=== PATIENT | female | born 1995 | race Two or more races ===

== ENCOUNTER 2016-12-13 23:16 | Inpatient (IN) | payer SELFPAY ==
[~2016-12-13] VITALS: Ht 152.4 cm; Wt 54.2 kg
[2016-12-13] MEDS ORDERED: IV NORMAL SALINE 1000ML BAG 1,000 ML IV ONE (23:30)
[2016-12-13 23:36] LABS: BASO # 0.1 x10^3/uL (0.0-0.2); BASO % 1 % (0-3); EOS % 9 % (0-3); HEMATOCRIT 37.5 % (36.0-47.0); HEMOGLOBIN 12.6 g/dL (12.0-15.5); LYMPH # 2.7 x10^3/uL (1.0-4.8); LYMPH % 18 % (24-48); MEAN CORPUSCULAR HEMOGLOBIN 28 pg (25-35); MEAN CORPUSCULAR HGB CONC 34 g/dL (31-37); MEAN CORPUSCULAR VOLUME 83 fL (79-100); MONO % 7 % (0-9); NEUT % 66 % (31-73); PLATELET COUNT 298 x10^3/uL (140-400); RED BLOOD COUNT 4.53 x10^6/uL (3.50-5.40); RED CELL DISTRIBUTION WIDTH 13.5 % (11.5-14.5); WHITE BLOOD COUNT 15.5 x10^3/uL (4.0-11.0)
[2016-12-13 23:48] LABS: CALCIUM 8.6 mg/dL (8.5-10.1); CREATININE 0.6 mg/dL (0.6-1.0); GFR 123.9; POTASSIUM 3.2 mmol/L (3.5-5.1)
[2016-12-13 23:51] LABS: ETHANOL < 10 mg/dL (0-10)
[2016-12-13 23:54] LABS: ALBUMIN 3.5 g/dL (3.4-5.0); ALBUMIN/GLOBULIN RATIO 1.1 (1.0-1.7); TOTAL BILIRUBIN 0.2 mg/dL (0.2-1.0); TOTAL PROTEIN 6.8 g/dL (6.4-8.2)
[2016-12-14 00:04] LABS: BARBITURATES NEG (NEG); BENZODIAZEPINES NEG (NEG); CANNABINOIDS NEG (NEG); COCAINE NEG (NEG); METHADONE NEG (NEG); OPIATES NEG (NEG); PHENCYCLIDINE NEG (NEG)
--- NOTE | 2016-12-14 00:12 | RAD ---
PROCEDURE CT scan of the head without contrast 12/13/2016 HISTORY Headache and altered mental status. TECHNIQUE Unenhanced contiguous, 5 millimeter axial sections were obtained through the head. One or more of the following individualized dose reduction techniques were utilized for this study: 1. Automated exposure control. 2. Adjustment of the mA and/or kV according to patient size. 3. Use of iterative reconstruction technique. FINDINGS The ventricles are within normal limits in size and configuration. A 9 millimeter irregular calcification is seen in the region of the left sylvian fissure. There is no surrounding edema or associated mass effect. No acute parenchymal abnormality is seen. No extra-axial fluid collection is noted. No skull fracture is seen. Moderate mucosal thickening is seen involving the left maxillary sinus. IMPRESSION No acute intracranial abnormality is seen. Electronically signed by: Toñito Shah MD (Dec 14, 2016 00:10:54)
[2016-12-14 00:15] LABS: ETHANOL, URINE NEG (NEG)
[2016-12-14] MEDS ORDERED: ACETAMINOPHEN 325 MG TABLET. PO PRN (00:45)
[2016-12-14] MEDS ORDERED: ONDANSETRON PF 4 MG/2 ML VIAL. IV PRN (00:45)
--- NOTE | 2016-12-14 00:45 | PHYS DOC ---
Past Medical History Past Medical History: No Pertinent History Past Surgical History: No Surgical History Alcohol Use: None Drug Use: None Adult General Chief Complaint Chief Complaint: ALTERED MENTAL STATUS HPI HPI 21-year-old female who presents after being found unresponsive by EMS with a GCS of 3. Patient would not respond to sternal rub. IV was placed and the patient was not reactive to the IV placement. 1 mg of Narcan was given without effect. Her blood sugar was within normal limits. While en route she became more responsive with a GCS of 12 upon arrival. Family states she was unresponsive for approximately 10 minutes. They deny any seizure-like activity. Currently the patient is still confused but able answer basic questions and in no acute distress. She denies any specific complaints at this time. Review of Systems Review of Systems Constitutional: Denies fever or chills [] Eyes: Denies change in visual acuity, redness, or eye pain [] HENT: Denies nasal congestion or sore throat [] Respiratory: Denies cough or shortness of breath [] Cardiovascular: No additional information not addressed in HPI [] GI: Denies abdominal pain, nausea, vomiting, bloody stools or diarrhea [] : Denies dysuria or hematuria [] Musculoskeletal: Denies back pain or joint pain [] Integument: Denies rash or skin lesions [] Neurologic: Denies headache, focal weakness or sensory changes [] Endocrine: Denies polyuria or polydipsia [] Current Medications Current Medications Current Medications Medications (Trade) Dose Ordered Sig/Lex Start Time Stop Time Status Last Admin Dose Admin Acetaminophen (Tylenol) 650 mg PRN Q4HRS PRN 12/14/16 00:45 12/15/16 00:44 Ketorolac Tromethamine (Toradol) 30 mg 1X ONCE 12/14/16 01:00 12/14/16 01:01 Ondansetron HCl (Zofran) 4 mg PRN Q8HRS PRN 12/14/16 00:45 12/15/16 00:44 Sodium Chloride (Iv Sodium Chloride 0.9% 1000ml Bag) 1,000 ml @ 1,000 mls/hr 1X ONCE 12/13/16 23:30 12/14/16 00:29 DC 12/14/16 00:20 1,000 MLS/HR Allergies Allergies Allergies Coded Allergies Type Severity Reaction Last Updated Verified Penicillins Allergy Unknown 12/13/16 Yes Physical Exam Physical Exam Constitutional: Well developed, well nourished, no acute distress, non-toxic appearance. [] HENT: Normocephalic, atraumatic, bilateral external ears normal, oropharynx moist, no oral exudates, nose normal. [] Eyes: PERRLA, EOMI, conjunctiva normal, no discharge. [] Neck: Normal range of motion, no tenderness, supple, no stridor. [] Cardiovascular:Heart rate regular rhythm, no murmur [] Lungs & Thorax: Bilateral breath sounds clear to auscultation [] Abdomen: Bowel sounds normal, soft, no tenderness, no masses, no pulsatile masses. [] Skin: Warm, dry, no erythema, no rash. [] Back: No tenderness, no CVA tenderness. [] Extremities: No tenderness, no cyanosis, no clubbing, ROM intact, no edema. [] Neurologic: Alert and oriented X 3, normal motor function, normal sensory function, no focal deficits noted. [] Psychologic: Affect normal, judgement normal, mood normal. [] Current Patient Data Vital Signs Vital Signs Date Time Temp Pulse Resp B/P Pulse Ox O2 Delivery O2 Flow Rate FiO2 12/14/16 00:16 64 16 104/68 100 Room Air 12/13/16 23:20 98.1 98.1 Lab Values Laboratory Tests Test 12/13/16 23:20 12/13/16 23:45 12/13/16 23:52 12/14/16 00:15 White Blood Count 15.5x10^3/uL (4.0-11.0) H Red Blood Count 4.53x10^6/uL (3.50-5.40) Hemoglobin 12.6g/dL (12.0-15.5) Hematocrit 37.5% (36.0-47.0) Mean Corpuscular Volume 83fL (79-100) Mean Corpuscular Hemoglobin 28pg (25-35) Mean Corpuscular Hemoglobin Concent 34g/dL (31-37) Red Cell Distribution Width 13.5% (11.5-14.5) Platelet Count 298x10^3/uL (140-400) Neutrophils (%) (Auto) 66% (31-73) Lymphocytes (%) (Auto) 18% (24-48) L Monocytes (%) (Auto) 7% (0-9) Eosinophils (%) (Auto) 9% (0-3) H Basophils (%) (Auto) 1% (0-3) Neutrophils # (Auto) 10.2x10^3uL (1.8-7.7) H Lymphocytes # (Auto) 2.7x10^3/uL (1.0-4.8) Monocytes # (Auto) 1.1x10^3/uL (0.0-1.1) Eosinophils # (Auto) 1.4x10^3/uL (0.0-0.7) H Basophils # (Auto) 0.1x10^3/uL (0.0-0.2) Segmented Neutrophils % 70% (35-66) H Lymphocytes % 14% (24-48) L Monocytes % 2% (0-10) Eosinophils % 12% (0-5) H Basophils % 2% (0-3) Platelet Estimate Adequate (ADEQUATE) Sodium Level 145mmol/L (136-145) Potassium Level 3.2mmol/L (3.5-5.1) L Chloride Level 109mmol/L (98-107) H Carbon Dioxide Level 23mmol/L (21-32) Anion Gap 13 (6-14) Blood Urea Nitrogen 15mg/dL (7-20) Creatinine 0.6mg/dL (0.6-1.0) Estimated GFR (Cockcroft-Gault) 123.9 BUN/Creatinine Ratio 25 (6-20) H Glucose Level 100mg/dL (70-99) H Calcium Level 8.6mg/dL (8.5-10.1) Total Bilirubin 0.2mg/dL (0.2-1.0) Aspartate Amino Transferase (AST) 15U/L (15-37) Alanine Aminotransferase (ALT) 22U/L (14-59) Alkaline Phosphatase 69U/L (46-116) Troponin I Quantitative < 0.017ng/mL (0.000-0.055) Total Protein 6.8g/dL (6.4-8.2) Albumin 3.5g/dL (3.4-5.0) Albumin/Globulin Ratio 1.1 (1.0-1.7) Salicylates Level < 2.8mg/dL (2.8-20.0) L Salicylate Last Dose Date Unknown Salicylate Last Dose Time Unknown Acetaminophen Level < 2mcg/ml (10-30) L Acetaminophen Last Dose Date Unknown Acetaminophen Last Dose Time Unknown Ethyl Alcohol Level < 10mg/dL (0-10) Urine Opiates Screen Neg (NEG) Urine Methadone Screen Neg (NEG) Urine Barbiturates Neg (NEG) Urine Phencyclidine Screen Neg (NEG) Urine Amphetamine/Methamphetamine Neg (NEG) Urine Benzodiazepines Screen Neg (NEG) Urine Cocaine Screen Neg (NEG) Urine Cannabinoids Screen Neg (NEG) Urine Ethyl Alcohol Neg (NEG) POC Urine HCG, Qualitative Hcg negative (Negative) Lactic Acid Level 0.9mmol/L (0.4-2.0) Laboratory Tests 12/13/16 23:20 Laboratory Tests 12/13/16 23:20 EKG EKG [] Radiology/Procedures Radiology/Procedures CT of the head without contrast demonstrates the following: The ventricles are within normal limits in size and configuration. A 9 millimeter irregular calcification is seen in the region of the left sylvian fissure. There is no surrounding edema or associated mass effect. No acute parenchymal abnormality is seen. No extra-axial fluid collection is noted. No skull fracture is seen. Moderate mucosal thickening is seen involving the left maxillary sinus. Course & Med Decision Making Course & Med Decision Making Pertinent Labs and Imaging studies reviewed. (See chart for details) This 21-year-old female who had an episode of unresponsiveness with improvement of her mental status while in the ER had a head CT that was negative for any acute abnormalities. Pt is afebrile. She does have a slightly elevated white count but no other specific findings on laboratory workup. Her vital signs have been normal. Lactate was negative. Toxicology screen was negative. I discussed the need for observation with the hospitalist, Dr. Ferguson, who agreed to accept the patient for further observation. She was admitted without incident. Dragon Disclaimer Dragon Disclaimer This electronic medical record was generated, in whole or in part, using a voice recognition dictation system. Departure Departure Impression: Primary Impression: Altered mental status Disposition: 09 ADMITTED INPATIENT Admitting Physician: Jimmie Ferguson Condition: STABLE Referrals: NO PCP (PCP) JERMEIAS TIPTON DO Dec 14, 2016 00:45
[2016-12-14 00:48] LABS: % BASOS 2 % (0-3); % EOS 12 % (0-5)
[2016-12-14 00:49] LABS: PLT ESTIMATE ADEQUATE (ADEQUATE)
[2016-12-14] MEDS ORDERED: KETOROLAC TROMETHAMINE 30 MG/ML SYRINGE. IV ONE (01:00)
[2016-12-14] MEDS ORDERED: RANI150T2 PO (02:19)
[2016-12-14] MEDS ORDERED: IBUP-1060 PO (02:19)
[2016-12-14 03:39] VITALS: BP 105/65
--- NOTE | 2016-12-14 06:13 | EKG ---
[facility] [address] [place] [address] Test Date: 2016-12-13 Test Time: 23:51:22 Pat Name: LLUVIA ZAMBRANO Department: Room: 578 1 Gender: F Deburrer Strip: : 1995 Requested By: JEREMIAS TIPTON Order Number: [id number] Reading MD: Leif Zarate Measurements Intervals Gilbert Rate: 71 P: 64 AR: 114 QRS: 62 QRSD: 80 T: 36 QT: 398 QTc: 437 Interpretive Statements SINUS RHYTHM NORMAL ECG RI6.01 Unconfirmed report No previous ECG available for comparison Electronically Signed On 12-19-2016 13:32:35 CLINICAL PSYCHIATRIST by Leif Zarate
[2016-12-14 07:00] VITALS: BP 95/55
[2016-12-14 11:00] VITALS: BP 97/54
--- NOTE | 2016-12-14 12:24 | PDOC1 ---
History and Physical Source Source: Chart review, Patient Family History Family History: Other (none) Social History Smoke: No ALCOHOL: none Drugs: Other (works in [email or web address]) Current Problem List Problem List Problems Medical Problems: (1) Altered mental status Status: Acute Current Medications Current Medications Current Medications Medications (Trade) Dose Ordered Sig/Lex Start Time Stop Time Status Last Admin Dose Admin Acetaminophen (Tylenol) 650 mg PRN Q4HRS PRN 12/14/16 00:45 12/15/16 00:44 12/14/16 08:49 650 MG Ketorolac Tromethamine (Toradol) 30 mg 1X ONCE 12/14/16 01:00 12/14/16 01:01 DC 12/14/16 01:00 30 MG Ondansetron HCl (Zofran) 4 mg PRN Q8HRS PRN 12/14/16 00:45 12/15/16 00:44 Sodium Chloride (Iv Sodium Chloride 0.9% 1000ml Bag) 1,000 ml @ 1,000 mls/hr 1X ONCE 12/13/16 23:30 12/14/16 00:29 DC 12/14/16 00:20 1,000 MLS/HR Allergies Allergies Allergies Coded Allergies Type Severity Reaction Last Updated Verified Penicillins Allergy Unknown 12/13/16 Yes ROS Review of System CONSTITUTIONAL: No fever or chills EYES: No recent changes SKIN: No rash or itching CARDIOVASCULAR: No chest pain, syncope, palpitations, or edema RESPIRATORY: No SOB or cough GASTROINTESTINAL: No nausea, vomiting or abdominal pain NEUROLOGICAL: headaches ENDOCRINE: No cold or heat intolerance GENITOURINARY: No urgency or frequency of urination MUSCULOSKELETAL: No back pain or joint pain LYMPHATICS: No enlarged lymph nodes PSYCHIATRIC: No anxiety or depression Physical Exam Physical Exam GEN.: No apparent distress. Alert and oriented. HEENT: Head is normocephalic, atraumatic NECK: Supple. no jvd LUNGS: Clear to auscultation. normal airflow HEART: RRR, S1, S2 present. Peripheral pulses intact ABDOMEN: Soft, nontender. Positive bowel sounds. EXTREMITIES: Without any cyanosis. NEUROLOGIC: Normal speech, normal tone PSYCHIATRIC: Normal affect, normal mood. SKIN: No ulcerations Vitals Vitals Vital Signs Date Time Temp Pulse Resp B/P Pulse Ox O2 Delivery O2 Flow Rate FiO2 12/14/16 11:00 96.6 74 18 97/54 97 Room Air 96.6 Labs Labs Laboratory Tests Test 12/13/16 23:20 12/13/16 23:45 12/13/16 23:52 12/14/16 00:15 White Blood Count 15.5x10^3/uL (4.0-11.0) Red Blood Count 4.53x10^6/uL (3.50-5.40) Hemoglobin 12.6g/dL (12.0-15.5) Hematocrit 37.5% (36.0-47.0) Mean Corpuscular Volume 83fL (79-100) Mean Corpuscular Hemoglobin 28pg (25-35) Mean Corpuscular Hemoglobin Concent 34g/dL (31-37) Red Cell Distribution Width 13.5% (11.5-14.5) Platelet Count 298x10^3/uL (140-400) Neutrophils (%) (Auto) 66% (31-73) Lymphocytes (%) (Auto) 18% (24-48) Monocytes (%) (Auto) 7% (0-9) Eosinophils (%) (Auto) 9% (0-3) Basophils (%) (Auto) 1% (0-3) Neutrophils # (Auto) 10.2x10^3uL (1.8-7.7) Lymphocytes # (Auto) 2.7x10^3/uL (1.0-4.8) Monocytes # (Auto) 1.1x10^3/uL (0.0-1.1) Eosinophils # (Auto) 1.4x10^3/uL (0.0-0.7) Basophils # (Auto) 0.1x10^3/uL (0.0-0.2) Segmented Neutrophils % 70% (35-66) Lymphocytes % 14% (24-48) Monocytes % 2% (0-10) Eosinophils % 12% (0-5) Basophils % 2% (0-3) Platelet Estimate Adequate (ADEQUATE) Sodium Level 145mmol/L (136-145) Potassium Level 3.2mmol/L (3.5-5.1) Chloride Level 109mmol/L (98-107) Carbon Dioxide Level 23mmol/L (21-32) Anion Gap 13 (6-14) Blood Urea Nitrogen 15mg/dL (7-20) Creatinine 0.6mg/dL (0.6-1.0) Estimated GFR (Cockcroft-Gault) 123.9 BUN/Creatinine Ratio 25 (6-20) Glucose Level 100mg/dL (70-99) Calcium Level 8.6mg/dL (8.5-10.1) Total Bilirubin 0.2mg/dL (0.2-1.0) Aspartate Amino Transf (AST/SGOT) 15U/L (15-37) Alanine Aminotransferase (ALT/SGPT) 22U/L (14-59) Alkaline Phosphatase 69U/L (46-116) Troponin I Quantitative < 0.017ng/mL (0.000-0.055) Total Protein 6.8g/dL (6.4-8.2) Albumin 3.5g/dL (3.4-5.0) Albumin/Globulin Ratio 1.1 (1.0-1.7) Salicylates Level < 2.8mg/dL (2.8-20.0) Salicylate Last Dose Date Unknown Salicylate Last Dose Time Unknown Acetaminophen Level < 2mcg/ml (10-30) Acetaminophen Last Dose Date Unknown Acetaminophen Last Dose Time Unknown Ethyl Alcohol Level < 10mg/dL (0-10) Urine Opiates Screen Neg (NEG) Urine Methadone Screen Neg (NEG) Urine Barbiturates Neg (NEG) Urine Phencyclidine Screen Neg (NEG) Urine Amphetamine/Methamphetamine Neg (NEG) Urine Benzodiazepines Screen Neg (NEG) Urine Cocaine Screen Neg (NEG) Urine Cannabinoids Screen Neg (NEG) Urine Ethyl Alcohol Neg (NEG) Bedside Urine HCG, Qualitative Hcg negative (Negative) Lactic Acid Level 0.9mmol/L (0.4-2.0) Laboratory Tests Test 12/13/16 23:20 12/13/16 23:45 12/13/16 23:52 12/14/16 00:15 White Blood Count 15.5x10^3/uL (4.0-11.0) Red Blood Count 4.53x10^6/uL (3.50-5.40) Hemoglobin 12.6g/dL (12.0-15.5) Hematocrit 37.5% (36.0-47.0) Mean Corpuscular Volume 83fL (79-100) Mean Corpuscular Hemoglobin 28pg (25-35) Mean Corpuscular Hemoglobin Concent 34g/dL (31-37) Red Cell Distribution Width 13.5% (11.5-14.5) Platelet Count 298x10^3/uL (140-400) Neutrophils (%) (Auto) 66% (31-73) Lymphocytes (%) (Auto) 18% (24-48) Monocytes (%) (Auto) 7% (0-9) Eosinophils (%) (Auto) 9% (0-3) Basophils (%) (Auto) 1% (0-3) Neutrophils # (Auto) 10.2x10^3uL (1.8-7.7) Lymphocytes # (Auto) 2.7x10^3/uL (1.0-4.8) Monocytes # (Auto) 1.1x10^3/uL (0.0-1.1) Eosinophils # (Auto) 1.4x10^3/uL (0.0-0.7) Basophils # (Auto) 0.1x10^3/uL (0.0-0.2) Segmented Neutrophils % 70% (35-66) Lymphocytes % 14% (24-48) Monocytes % 2% (0-10) Eosinophils % 12% (0-5) Basophils % 2% (0-3) Platelet Estimate Adequate (ADEQUATE) Sodium Level 145mmol/L (136-145) Potassium Level 3.2mmol/L (3.5-5.1) Chloride Level 109mmol/L (98-107) Carbon Dioxide Level 23mmol/L (21-32) Anion Gap 13 (6-14) Blood Urea Nitrogen 15mg/dL (7-20) Creatinine 0.6mg/dL (0.6-1.0) Estimated GFR (Cockcroft-Gault) 123.9 BUN/Creatinine Ratio 25 (6-20) Glucose Level 100mg/dL (70-99) Calcium Level 8.6mg/dL (8.5-10.1) Total Bilirubin 0.2mg/dL (0.2-1.0) Aspartate Amino Transf (AST/SGOT) 15U/L (15-37) Alanine Aminotransferase (ALT/SGPT) 22U/L (14-59) Alkaline Phosphatase 69U/L (46-116) Troponin I Quantitative < 0.017ng/mL (0.000-0.055) Total Protein 6.8g/dL (6.4-8.2) Albumin 3.5g/dL (3.4-5.0) Albumin/Globulin Ratio 1.1 (1.0-1.7) Salicylates Level < 2.8mg/dL (2.8-20.0) Salicylate Last Dose Date Unknown Salicylate Last Dose Time Unknown Acetaminophen Level < 2mcg/ml (10-30) Acetaminophen Last Dose Date Unknown Acetaminophen Last Dose Time Unknown Ethyl Alcohol Level < 10mg/dL (0-10) Urine Opiates Screen Neg (NEG) Urine Methadone Screen Neg (NEG) Urine Barbiturates Neg (NEG) Urine Phencyclidine Screen Neg (NEG) Urine Amphetamine/Methamphetamine Neg (NEG) Urine Benzodiazepines Screen Neg (NEG) Urine Cocaine Screen Neg (NEG) Urine Cannabinoids Screen Neg (NEG) Urine Ethyl Alcohol Neg (NEG) Bedside Urine HCG, Qualitative Hcg negative (Negative) Lactic Acid Level 0.9mmol/L (0.4-2.0) VTE Prophylaxis Ordered VTE Prophylaxis Devices: No VTE Pharmacological Prophylaxi: No CUAUHTEMOC MESSER MD Dec 14, 2016 12:24
[2016-12-14] MEDS ORDERED: POTASSIUM CHLORIDE 20 MEQ TABLET.ER. PO ONE (13:00)
[2016-12-14] MEDS ORDERED: IV NORMAL SALINE 500ML BAG 500 ML IV ONE (13:00)
[2016-12-14 15:00] VITALS: BP 109/47
--- NOTE | 2016-12-14 15:08 | PDOC2 ---
NEUROLOGY CONSULT Date of Admission Date of Admission DATE: 12/14/16 TIME: 14:55 Reason for Consult Reason for Consult: IMPRESSION: MS changes Unresponsiveness for about 10 minutes on 12/13/16. Hypokalemia. RECOMMENDATIONS/PLAN: EEG. HCT performed which was negative. Lab: see orders. Medical treatment. HISTORY OF THE PRESENT ILLNESS: 21-y-old Ukrainian origin female patient was found unresponsive at home. She was unresponsive to verbal and textile stimuli per EMS. No shaking, jerking or urbano movements observed. She gained consciousness after 10 minutes without obvious postictal state. She was brought to the ER of [facility] and no recurrence of episode. Patient stated she does not speak much Samoan. PAST MEDICAL HISTORY: Please see above. PAST SURGERY HISTORY: No major surgery recently. ALLERGY: Unknown MEDICATIONS: Refer to [facility] FAMILY HISTORY: Non contributory. SOCIAL HISTORY: Lives at home. Denies smoking, drinking, and illicit drug use. REVIEW OF SYSTEMS: Constitutional: No malnutrition, weight loss, cachexia. Head: No traumatic brain or head injury. Skin: No edema, or rash. Ear: No infection, tinnitus. Eyes: No vision loss or color blindness. Nose: No bleeding or purulent discharges. Hearing: No hearing decrease. Neck: No injury. Breast: No history of cancer, masses,or discharges. Cardiac: No LA, arrhythmia,HTN, HLD. Pulmonary: No pneumonia, COPD. GI: No GI ulcer, GI bleeding. Urinary/genital: No dysuria, hematuria, incontinence, urinary retention. Endocrinologic: No cousin face, craniofacial dysmorphism, polydactyly, goiter.. Skeletomuscular: No muscular atrophy, deformity. Neurological: see HP. Psychiatric: Denies drug use/abuse. Otherwise, not [id number] review of systems. PHYSICAL EXAMINATION: General appearance is in no acute distress. HEENT: Normocephalic and nontraumatic. Eyes, nose, ears, and throat are unremarkable. Neck is supple. No lymphadenopathy. No bruits are heard over the carotid artery. No crepitus. Cardiovascular: S1, S2, regular rate and rhythm. Pulmonary: Clear to auscultation bilaterally. Abdomen: Bowel sounds are positive. Abdomen is soft, nontender, and nondistended. Extremities: No rash, lesions, or edema. No restriction of range of motion NEUROLOGICAL EXAMINATION: Alert Oriented to time, place and person. PERRL. EOMI. CN: no focal findings. Muscle tone: within normal. Muscle strength: 5. No drift of UE and LE after 10 seconds. DTR: 2+ Plantar reflex: Flexor response bilaterally Gait: At baseline normal. Sensory exam: no abnormal findings. No cerebellar signs elicited. F-T-N test accurate. Current Medications Current Medications Current Medications Sodium Chloride (Iv Sodium Chloride 0.9% 1000ml Bag) 1,000 ml @ 1,000 mls/hr 1X ONCE IV Last administered on 12/14/16 00:20; Start 12/13/16 at 23:30; Stop 12/14/16 at 00:29; Status DC Ondansetron HCl (Zofran) 4 mg PRN Q8HRS PRN IV NAUSEA/VOMITING; Start 12/14/16 at 00:45; Stop 12/15/16 at 00:44 Acetaminophen (Tylenol) 650 mg PRN Q4HRS PRN PO FEVER Last administered on 08:49; Start 12/14/16 at 00:45; Stop 12/15/16 at 00:44 Ketorolac Tromethamine (Toradol) 30 mg 1X ONCE IV Last administered on 01:00; Start 12/14/16 at 01:00; Stop 12/14/16 at 01:01; Status DC Potassium Chloride 40 meq 40 meq 1X ONCE PO ; Start 12/14/16 at 13:00; Stop 12/14 at 13:01; Status DC Sodium Chloride (Iv Sodium Chloride 0.9% 500ml Bag) 500 ml @ 500 mls/hr 1X ONCE IV ; Start 12/14/16 at 13:00; Stop 12/14/16 at 13:59; Status DC Active Scripts Active Reported Ibuprofen 800 Mg Tablet 800 Mg PO TID Ranitidine Hcl 150 Mg Tablet 150 Mg PO BID Allergies Allergies: Coded Allergies: Penicillins (Verified Allergy, Unknown, 12/13/16) Vitals VITALS Vital Signs Date Time Temp Pulse Resp B/P Pulse Ox O2 Delivery O2 Flow Rate FiO2 12/14/16 11:00 96.6 74 18 97/54 97 Room Air 96.6 Labs Labs Laboratory Tests Test 12/13/16 23:20 12/13/16 23:45 12/13/16 23:52 12/14/16 00:15 White Blood Count 15.5x10^3/uL (4.0-11.0) Red Blood Count 4.53x10^6/uL (3.50-5.40) Hemoglobin 12.6g/dL (12.0-15.5) Hematocrit 37.5% (36.0-47.0) Mean Corpuscular Volume 83fL (79-100) Mean Corpuscular Hemoglobin 28pg (25-35) Mean Corpuscular Hemoglobin Concent 34g/dL (31-37) Red Cell Distribution Width 13.5% (11.5-14.5) Platelet Count 298x10^3/uL (140-400) Neutrophils (%) (Auto) 66% (31-73) Lymphocytes (%) (Auto) 18% (24-48) Monocytes (%) (Auto) 7% (0-9) Eosinophils (%) (Auto) 9% (0-3) Basophils (%) (Auto) 1% (0-3) Neutrophils # (Auto) 10.2x10^3uL (1.8-7.7) Lymphocytes # (Auto) 2.7x10^3/uL (1.0-4.8) Monocytes # (Auto) 1.1x10^3/uL (0.0-1.1) Eosinophils # (Auto) 1.4x10^3/uL (0.0-0.7) Basophils # (Auto) 0.1x10^3/uL (0.0-0.2) Segmented Neutrophils % 70% (35-66) Lymphocytes % 14% (24-48) Monocytes % 2% (0-10) Eosinophils % 12% (0-5) Basophils % 2% (0-3) Platelet Estimate Adequate (ADEQUATE) Sodium Level 145mmol/L (136-145) Potassium Level 3.2mmol/L (3.5-5.1) Chloride Level 109mmol/L (98-107) Carbon Dioxide Level 23mmol/L (21-32) Anion Gap 13 (6-14) Blood Urea Nitrogen 15mg/dL (7-20) Creatinine 0.6mg/dL (0.6-1.0) Estimated GFR (Cockcroft-Gault) 123.9 BUN/Creatinine Ratio 25 (6-20) Glucose Level 100mg/dL (70-99) Calcium Level 8.6mg/dL (8.5-10.1) Total Bilirubin 0.2mg/dL (0.2-1.0) Aspartate Amino Transf (AST/SGOT) 15U/L (15-37) Alanine Aminotransferase (ALT/SGPT) 22U/L (14-59) Alkaline Phosphatase 69U/L (46-116) Troponin I Quantitative < 0.017ng/mL (0.000-0.055) Total Protein 6.8g/dL (6.4-8.2) Albumin 3.5g/dL (3.4-5.0) Albumin/Globulin Ratio 1.1 (1.0-1.7) Salicylates Level < 2.8mg/dL (2.8-20.0) Salicylate Last Dose Date Unknown Salicylate Last Dose Time Unknown Acetaminophen Level < 2mcg/ml (10-30) Acetaminophen Last Dose Date Unknown Acetaminophen Last Dose Time Unknown Ethyl Alcohol Level < 10mg/dL (0-10) Urine Opiates Screen Neg (NEG) Urine Methadone Screen Neg (NEG) Urine Barbiturates Neg (NEG) Urine Phencyclidine Screen Neg (NEG) Urine Amphetamine/Methamphetamine Neg (NEG) Urine Benzodiazepines Screen Neg (NEG) Urine Cocaine Screen Neg (NEG) Urine Cannabinoids Screen Neg (NEG) Urine Ethyl Alcohol Neg (NEG) Bedside Urine HCG, Qualitative Hcg negative (Negative) Lactic Acid Level 0.9mmol/L (0.4-2.0) Laboratory Tests Test 12/13/16 23:20 12/13/16 23:45 12/13/16 23:52 12/14/16 00:15 White Blood Count 15.5x10^3/uL (4.0-11.0) Red Blood Count 4.53x10^6/uL (3.50-5.40) Hemoglobin 12.6g/dL (12.0-15.5) Hematocrit 37.5% (36.0-47.0) Mean Corpuscular Volume 83fL (79-100) Mean Corpuscular Hemoglobin 28pg (25-35) Mean Corpuscular Hemoglobin Concent 34g/dL (31-37) Red Cell Distribution Width 13.5% (11.5-14.5) Platelet Count 298x10^3/uL (140-400) Neutrophils (%) (Auto) 66% (31-73) Lymphocytes (%) (Auto) 18% (24-48) Monocytes (%) (Auto) 7% (0-9) Eosinophils (%) (Auto) 9% (0-3) Basophils (%) (Auto) 1% (0-3) Neutrophils # (Auto) 10.2x10^3uL (1.8-7.7) Lymphocytes # (Auto) 2.7x10^3/uL (1.0-4.8) Monocytes # (Auto) 1.1x10^3/uL (0.0-1.1) Eosinophils # (Auto) 1.4x10^3/uL (0.0-0.7) Basophils # (Auto) 0.1x10^3/uL (0.0-0.2) Segmented Neutrophils % 70% (35-66) Lymphocytes % 14% (24-48) Monocytes % 2% (0-10) Eosinophils % 12% (0-5) Basophils % 2% (0-3) Platelet Estimate Adequate (ADEQUATE) Sodium Level 145mmol/L (136-145) Potassium Level 3.2mmol/L (3.5-5.1) Chloride Level 109mmol/L (98-107) Carbon Dioxide Level 23mmol/L (21-32) Anion Gap 13 (6-14) Blood Urea Nitrogen 15mg/dL (7-20) Creatinine 0.6mg/dL (0.6-1.0) Estimated GFR (Cockcroft-Gault) 123.9 BUN/Creatinine Ratio 25 (6-20) Glucose Level 100mg/dL (70-99) Calcium Level 8.6mg/dL (8.5-10.1) Total Bilirubin 0.2mg/dL (0.2-1.0) Aspartate Amino Transf (AST/SGOT) 15U/L (15-37) Alanine Aminotransferase (ALT/SGPT) 22U/L (14-59) Alkaline Phosphatase 69U/L (46-116) Troponin I Quantitative < 0.017ng/mL (0.000-0.055) Total Protein 6.8g/dL (6.4-8.2) Albumin 3.5g/dL (3.4-5.0) Albumin/Globulin Ratio 1.1 (1.0-1.7) Salicylates Level < 2.8mg/dL (2.8-20.0) Salicylate Last Dose Date Unknown Salicylate Last Dose Time Unknown Acetaminophen Level < 2mcg/ml (10-30) Acetaminophen Last Dose Date Unknown Acetaminophen Last Dose Time Unknown Ethyl Alcohol Level < 10mg/dL (0-10) Urine Opiates Screen Neg (NEG) Urine Methadone Screen Neg (NEG) Urine Barbiturates Neg (NEG) Urine Phencyclidine Screen Neg (NEG) Urine Amphetamine/Methamphetamine Neg (NEG) Urine Benzodiazepines Screen Neg (NEG) Urine Cocaine Screen Neg (NEG) Urine Cannabinoids Screen Neg (NEG) Urine Ethyl Alcohol Neg (NEG) Bedside Urine HCG, Qualitative Hcg negative (Negative) Lactic Acid Level 0.9mmol/L (0.4-2.0) JUAN C CRAVEN MD Dec 14, 2016 15:08
[2016-12-14] MEDS ORDERED: IV NORMAL SALINE 1000ML BAG 1,000 ML IV ONE (16:15)
[2016-12-14 19:00] VITALS: BP 105/58
--- NOTE | 2016-12-14 21:57 | ACF ---
Admission Forms Criteria MENTAL STATUS CHANGE Clinical Indications for Inpatient Care (Place 'X' for any and all applicable criteria): Ongoing inpatient care may be needed for ANY ONE of the following(1)(2)(3)(5)(6) : [ ]I. Suspected serious etiology (eg, medical disorder, EQUIPMENT TECH event) of mental status change [ ]II. Danger to self or others not manageable at lower level of care [ ]III. Grave disability (eg, inability to perform self care necessary at lower level of care) [ ]IV. Agitation or inappropriate behavior interfering with care for primary condition (eg, attempting to discontinue lines or drains prematurely, unable to cooperate with respiratory care) [ ]V. Delirium [A] [D][E] as described by ANY ONE of the following(26): [ ]a) Delirium due to alcohol or sedative [F] withdrawal [ ]b) Delirium of uncertain etiology that has not responded to appropriate empiric treatment [ ]c) Delirium that prevents performance of a life-sustaining function (eg, feeding or hydrating oneself) [X]. General contraindications and/or Inappropriate clinical situations for Observational Care in patients with Mental Status Change, when ANY ONE of the following is required: [X]a) Prediction of prolongation of LOS based on ANY ONE of the following may be considered as a contraindication for observational care 2, 3, 4, 5, 6, 7, 8, 9, 10, 11 [ ]i) Age > 65 yrs. [ ]ii) Patient arriving by ambulance [ ]iii) Patient with high acuity [X]iv) Patient requiring vital sign monitoring [ ]v) Patient on IV medication [ ]b) Systolic blood pressures 180mmHg 3,12 [ ]c) Patient with altered mental status including delirium and other alteration of consciousness, (3) [ ]d) Patient whose discharge disposition will be to a senior living home or rehabilitation home should not be managed in Emergency Department Observation Unit. CMS rule requires 3 days hospital stay before such placement.3,13 [ ]e) Patient with failure to thrive due to broad array of etiologies 3,16,17 [ ]f) Inability to ambulate 3,14 Extended stay beyond goal length of stay for the primary condition may be needed until ALL of the following are present(3)(5): [ ]a) Underlying medical etiology of mental status change is absent, or has been established and adequately treated [ ]b) Danger to self or others is absent or manageable at lower level of care. [ ]c) Behavior crisis management, including physical or chemical restraints, is not required or available at lower level of car [ ]d) Substance or alcohol withdrawal is absent or manageable at lower level of care. [ ]e) Behavioral symptoms (eg, agitation, somnolence, inappropriate behavior) are absent, or are manageable at lower level of care. The original [facility] content created by [facility] has been revised. The portions of the content which have been revised are identified through the use of italic text or in bold, and [facility] has neither reviewed nor approved the modified material. All other unmodified content is copyright [facility]. Please see references footnoted in the original [facility] edition 2016 Admission Criteria Met?: Yes MACKENZIE HERNANDEZ Dec 14, 2016 21:57
--- NOTE | 2016-12-14 22:08 | HP ---
ADMIT DATE: 12/14/2016 CHIEF COMPLAINT: Amnesia. HISTORY OF PRESENT ILLNESS: A 21-year-old Sinhala speaking female patient with no prior history, brought to the hospital for unresponsiveness at home for nearly 10 minutes. As per the EMS report, patient did not respond to deep sternal rub and as per their report, her GCS was 3. She gained consciousness in 10 minutes and at the time of her arrival in the ER, her GCS was 15. The patient is alert and oriented. At the time of my examination this morning, the patient denies any complaints other than mild headache. All she remembers was last night around 9:00, she went to bed, she did not recall any events. I did use the avionics technician phone for communication. She denies any other symptoms. PAST MEDICAL HISTORY: None. PAST SURGICAL HISTORY: None. FAMILY HISTORY: None. SOCIAL HISTORY: Denies any substance abuse. REVIEW OF SYSTEMS: Please see my electronic H and P. PHYSICAL EXAMINATION: Please see my electronic H and P. LABORATORY DATA: WBC 15.8, hemoglobin is 12.6, MCV is 83, platelets 298. Neutrophils 7.2, segmented neutrophils 70%. Chemistry: Sodium is 145, potassium 3.2, chloride is ____, anion gap is 13. BUN and creatinine ratio is 25. Glucose 100. Toxicology is negative. Urine test negative. IMAGING STUDIES: CT head negative. ASSESSMENT AND PLAN: Mental status changes prior to arrival, unclear etiology and hypokalemia. PLAN: 1. The patient had a CT of the head, which is negative. Neurology has been consulted for further recommendations for possible MRI and EEG. 2. Potassium has been replaced, awaiting Neurology recommendations. 3. On neurological exam, she appears to be intact. I will continue mild IV hydration as patient has mild hypertension; however, she is asymptomatic. 4. She did not develop any fevers or chills, at this time, she appears clinically intact. CUAUHTEMOC MESSER MD DR: GREGORIA/norman JOB#: [id number] / [id number] FRANCO
[2016-12-14 23:00] VITALS: BP 95/55
[2016-12-15 03:00] VITALS: BP 100/56
[2016-12-15 07:00] VITALS: BP 97/60
[2016-12-15 10:47] VITALS: BP 100/63
--- NOTE | 2016-12-15 14:21 | PDOC ---
PROGRESS NOTES Assessment Assessment MS changes Unresponsiveness for about 10 minutes on 12/13/16. Hypokalemia. RECOMMENDATIONS/PLAN: Medical treatment. FU with PCP. Not to driving for 6 months. HCT performed which was negative. EEG: No seizure epileptiform discharges. WNL HISTORY OF THE PRESENT ILLNESS: 21-y-old Maltese origin female patient was found unresponsive at home. She was unresponsive to verbal and textile stimuli per EMS. No shaking, jerking or urbano movements observed. She gained consciousness after 10 minutes without obvious postictal state. She was brought to the ER of [facility] and no recurrence of episode. Patient stated she does not speak much Peruvian. No recurrent episodes. No neurological focal deficits. PAST MEDICAL HISTORY: Please see above. PAST SURGERY HISTORY: No major surgery recently. ALLERGY: Unknown MEDICATIONS: Refer to [facility] FAMILY HISTORY: Non contributory. SOCIAL HISTORY: Lives at home. Denies smoking, drinking, and illicit drug use. REVIEW OF SYSTEMS: Constitutional: No malnutrition, weight loss, cachexia. Head: No traumatic brain or head injury. Skin: No edema, or rash. Ear: No infection, tinnitus. Eyes: No vision loss or color blindness. Nose: No bleeding or purulent discharges. Hearing: No hearing decrease. Neck: No injury. Breast: No history of cancer, masses,or discharges. Cardiac: No KS, arrhythmia,HTN, HLD. Pulmonary: No pneumonia, COPD. GI: No GI ulcer, GI bleeding. Urinary/genital: No dysuria, hematuria, incontinence, urinary retention. Endocrinologic: No cousin face, craniofacial dysmorphism, polydactyly, goiter.. Skeletomuscular: No muscular atrophy, deformity. Neurological: see HP. Psychiatric: Denies drug use/abuse. Otherwise, not [id number] review of systems. PHYSICAL EXAMINATION: General appearance is in no acute distress. HEENT: Normocephalic and nontraumatic. Eyes, nose, ears, and throat are unremarkable. Neck is supple. No lymphadenopathy. No bruits are heard over the carotid artery. No crepitus. Cardiovascular: S1, S2, regular rate and rhythm. Pulmonary: Clear to auscultation bilaterally. Abdomen: Bowel sounds are positive. Abdomen is soft, nontender, and nondistended. Extremities: No rash, lesions, or edema. No restriction of range of motion NEUROLOGICAL EXAMINATION: Alert Oriented to time, place and person. PERRL. EOMI. CN: no focal findings. Muscle tone: within normal. Muscle strength: 5. No drift of UE and LE after 10 seconds. DTR: 2+ Plantar reflex: Flexor response bilaterally Gait: Normal. Sensory exam: no abnormal findings. No cerebellar signs elicited. F-T-N test accurate. Objective Objective Vital Signs Date Time Temp Pulse Resp B/P Pulse Ox O2 Delivery O2 Flow Rate FiO2 12/15/16 10:47 97.7 63 18 100/63 98 Room Air 97.7 Intake and Output 12/15/16 07:00 Intake Total 1800 ml Balance 1800 ml Intake Oral 1800 ml # Voids 8 Vitals Signs Vitals VS - Last 72 Hours, by Label Date Time Temp Pulse Resp B/P Pulse Ox O2 Delivery O2 Flow Rate FiO2 12/15/16 10:47 97.7 63 18 100/63 98 Room Air 97.7 12/15/16 08:00 Room Air 12/15/16 07:00 97.7 63 18 97/60 98 Room Air 97.7 12/15/16 03:00 97.8 104 16 100/56 99 97.8 12/14/16 23:00 97.5 63 16 95/55 96 97.5 12/14/16 19:53 Room Air 12/14/16 19:00 98.4 66 20 105/58 97 98.4 12/14/16 15:00 97.7 62 18 109/47 98 Room Air 97.7 12/14/16 11:00 96.6 74 18 97/54 97 Room Air 96.6 12/14/16 08:00 Room Air 12/14/16 07:00 97.4 67 17 95/55 97 Room Air 97.4 Medication Medications Current Medications Sodium Chloride (Iv Sodium Chloride 0.9% 1000ml Bag) 1,000 ml @ 75 mls/hr 1X ONCE IV Last administered on 12/14/16t 19:00; Start 12/14/16 at 16:15; Stop at 05:35; Status DC Comment Review of Relevant I have reviewed the following items zita (where applicable) has been applied. JUAN C CRAVEN MD Dec 15, 2016 14:21
--- NOTE | 2016-12-15 18:15 | EEG ---
DATE OF SERVICE: 12/14/2016 EEG NUMBER: [id number] OBJECTIVE: This is a 21-year-old Hungarian origin female patient with history of a seizure-like episode. EEG was requested to evaluate seizure activity. METHODS: Sixteen electrodes were applied according to the international 10-20 electrode placement system. EKG monitoring, hyperventilation, intermittent photic stimulation, monopolar and bipolar montages are routinely utilized. The record was obtained on a digital system with video monitoring. MEDICATIONS: No anti-seizure medications. FINDINGS: 1. Background: The patient was recorded in the awake, drowsy and sleep states. The overall background amplitude is 10-20 microvolts. A posterior dominant rhythm of 8 Hz is observed. Fast activity in beta frequency and muscle artifact also noted. 2. Abnormalities: No specific epileptiform discharge or electrographic seizure is seen. No focal or diffuse slowing. 3. Activation: Hyperventilation was performed with good efforts and normal response. Intermittent photic stimulation was performed with photic driving. No specific epileptiform discharge or electrographic seizure induced by hyperventilation or intermittent photic stimulation. IMPRESSION: This EEG is within the normal limits of the study for the awake, drowsy and sleep states. No focal, lateralizing, specific epileptiform discharge or electrographic seizure is seen. However, a normal EEG does not rule out seizure. If the patient has more seizure or seizure-like episodes, further EEG study is recommended. JUAN C CRAVEN MD DR: LESTER/norman JOB#: [id number] / [id number] FRANCO
--- NOTE | 2016-12-21 08:57 | PDOC3 ---
Discharge Summary* Date of Discharge: Dec 15, 2016 Admitting Diagnosis Problems Medical Problems: (1) Altered mental status Status: Acute Final Diagnosis Problems Unresponsiveness for about 10 minutes on 12/13/16, Prior to arrival, unclear. Hypokalemia. resolved. Brief Hospital Course A 21-year-old Portuguese speaking female patient with no prior history, brought to the hospital for unresponsiveness at home for nearly 10 minutes, but when she is in the hospital her mentation is very clear, risk engineer phone used for conversation, denies any fever, except for mild headaches. She had CT, head, EEG which was negative for any acute findings. Need further work up with pcp. Today she is deemed stable to go home and follow with Dr Winters as needed. exam GENERAL: No apparent distress. Alert and oriented. HEENT: Head normocephalic, atraumatic. NECK: Supple LUNGS: Clear to auscultation. HEART: RRR, S1, S2 present, pulses intact ABDOMEN: Soft, positive bowel sounds. Scheduled Ranitidine Hcl (Ranitidine Hcl) 150 MG PO BID (Reported) Discontinued Medications Ibuprofen (Ibuprofen) 800 MG PO TID (Reported) Time Spent Total time spent with patient 31] minutes for coordination of care, counseling, and education. CUAUHTEMOC MESSER MD Dec 21, 2016 08:57
== END 2016-12-15 14:00 | disposition home or self-care (01) | DRG 641 ==
LOC: ER 23:16 → 5 SOUTH 12-14 00:26
PROVIDERS: ADMIT Internal Medicine; ATTEND Internal Medicine
DX: E87.6 Hypokalemia (principal); Z88.0 Allergy status to penicillin
CPT/HCPCS: 36415; 70450; 80053; 81025; 83605; 84484; 85007; 85027; 93005; 95816; 96361; 96374; G0480; G0481; G6038; J1885; J7030; J7040; 80196; 99285-25